=== PATIENT | male | born 1985 | race Caucasian/White ===

== ENCOUNTER → 2016-09-11 | Outpatient (CLI) | payer MEDICARE, MEDICAID ==
[~2016-09-11] MED LIST: CYMBALTA20 MG ORAL; IBUPROFEN600 MG ORAL; KLONOPIN1 MG ORAL; ROBAXIN500 MG PO; TOPIRAMATE25 MG ORAL; ZONEGRAN100 MG ORAL
--- NOTE | 2016-09-11 13:18 | Diagnostic Imaging Report ---
Indication: Dyspnea Comparison: 06/21/14 2 views of the chest obtained. Findings: Cardiomediastinal silhouette and pulmonary vascularity are within normal limits for age. The diaphragmatic contour is smooth and costophrenic angles are sharp. No pleural effusions are identified. The bones are unremarkable. Impression: No acute disease
== END | disposition home or self-care (01) ==
LOC: RAD 09:50
DX: Z01.810 Encounter for preprocedural cardiovascular examination (principal); Z01.811 Encounter for preprocedural respiratory examination; R05 Cough
CPT/HCPCS: 71020

== ENCOUNTER 2017-04-10 09:56 | Outpatient (CLI) | payer MEDICARE, MEDICAID ==
--- NOTE | 2017-04-10 11:55 | Diagnostic Imaging Report ---
Indication: Lower abdominal pain Technique: Mayfield-scale and duplex images of the upper abdomen were obtained Comparison: None Findings: Gallbladder is unremarkable, without stones, wall thickening, nor pericholecystic fluid. Sonographic Camp's sign is negative. Common bile duct measures 3 mm in diameter. No intrahepatic biliary ductal dilatation. Liver demonstrates normal echogenicity, no focal abnormality. Portal vein and hepatic veins are patent. Pancreas is obscured by bowel gas. Spleen is surgically absent Left kidney measures 11.4 cm in length. Right kidney measures 12 cm length. Both kidneys demonstrate normal echogenicity. There is no hydronephrosis. No focal abnormality . Non-aneurysmal abdominal aorta . Impression: Surgically absent spleen Nonvisualization of the pancreas due to patient body habitus and bowel gas Otherwise unremarkable. Negative for gallstones or dilated ducts
== END 2017-04-10 12:56 | disposition home or self-care (01) ==
LOC: ULS 09:56
DX: R10.9 Unspecified abdominal pain (principal); Z90.81 Acquired absence of spleen
CPT/HCPCS: 76700